=== PATIENT | male | born 1970 | race Caucasian/White ===

== ENCOUNTER 2025-07-03 09:17 | Outpatient (CLI) | payer OTHER, SELFPAY | END 2025-07-03 09:18 | disposition home or self-care (01) | LOC: AMB 07-04 21:29 | PROVIDERS: PCP Family Medicine; Visit Provider Family Medicine | DX: R06.09 Other forms of dyspnea (principal); R11.2 Nausea with vomiting, unspecified | CPT/HCPCS: A0425; A0427 ==

== ENCOUNTER 2025-07-03 09:40 | Inpatient (IN) | payer OTHER, SELFPAY ==
[2025-07-03] VITALS (30 sets, daily range): BP systolic 98–150; BP diastolic 61–103; PULSE 45–69; RESP 8–28; TEMP 36.4–38.1; O2SAT 73–100; BMI 32.0
[2025-07-03] MEDS: MORPHINE 4 MG/ML INJ IVP (10:05)
[2025-07-03] MEDS: ONDANSETRON 2 MG/ML inj 4 MG IVP (10:09)
[2025-07-03 10:14] LABS: Lactate Sepsis w/Reflex* 3.8 mmol/L (0.5-1.9)
[2025-07-03 10:15] LABS: Hematocrit* 45.7 % (37.0-53.0); Hemoglobin* 16.0 gm/dL (13.5-17.5); Immature Granulocytes Abs Auto 0.01 K/uL (0.00-0.30); Immature Granulocytes Pct Auto 0.2 %; Mean Corpuscular HGB Conc 35 gm/dL (32-36); Mean Corpuscular Hemoglobin 30 pg (26-34); Mean Corpuscular Volume 85 fL (80-100); RDW Coefficient of Variation % 14.0 % (11.5-15.5); Red Blood Count* 5.40 m/uL (4.30-5.90); White Blood Count* 5.08 K/uL (4.50-11.00)
[2025-07-03 10:19] LABS: Lymphocytes Absolute Auto 0.70 K/uL (0.90-2.90); Slide Review Reflex No
[2025-07-03 10:22] LABS: Troponin, Point-of-Care* 0.00 ng/ml (0.01-0.04)
--- NOTE | 2025-07-03 10:29 | CRLHL7_ITS ---
For Patients: As a result of the Century Cures Act, medical imaging exams and procedure reports are released immediately into your electronic medical record. You may view this report before your referring provider. If you have questions, please contact your health care provider. INDICATION: Vomiting, severe abdominal pain. TECHNIQUE: Axial images were obtained from the diaphragm to the pubic symphysis. Reformats were obtained in the coronal and sagittal plane. IV Contrast: 110 cc Isovue 370 Oral Contrast: None COMPARISON: None. FINDINGS: Lower chest: Discoid atelectasis left lower lobe. Liver: Nodular contour of the liver consistent with a cirrhotic morphology. No focal intrahepatic lesions. Gallbladder and bile ducts: Numerous layering gallstones without gallbladder wall thickening. Normal diameter common duct. Spleen: Moderate splenomegaly without focal lesion. Pancreas: Unremarkable. No mass or inflammation. Adrenal glands: Unremarkable. No nodules. Kidneys: Symmetric renal enhancement without hydronephrosis. 2 millimeter nonobstructing stone lower pole left kidney. Subcentimeter hypodense lesion right kidney, likely renal cyst. Vasculature: Atherosclerosis without abdominal aortic aneurysm. Markedly dilated splenic vein, portal vein with prominent recanalized periumbilical vein. Numerous collateral vessels along the right abdominal wall extending to the right external iliac vein which is markedly dilated. Separate subcutaneous collaterals along the right abdominal wall emptying into the distal greater saphenous vein. GI tract: Haziness within the central mesentery, likely secondary to portal hypertension with trace ascites. The stomach is unremarkable. No dilated loops of large or small intestine. Subcentimeter lymph nodes within the central mesentery. Appendix unremarkable. Moderate colonic diverticulosis without localizing inflammation. Small fat containing umbilical hernia. Pelvis: Unremarkable. Bones: Unremarkable for age. IMPRESSION: 1. Cirrhotic morphology of the liver with associated splenomegaly and varices consistent with portal hypertension. 2. Extensive cholelithiasis without CT evidence of cholecystitis. 3. Nonobstructing nephrolithiasis. 4. Colonic diverticulosis. Please note that all CT scans at this facility use dose modulation, iterative reconstruction, and/or weight-based dosing when appropriate to reduce radiation dose to as low as reasonably achievable. Dictated by Ming Mejia MD @ 07/03/2025 11:14:22 AM (Electronically Signed)
[2025-07-03 10:32] LABS: Albumin* 4.5 g/dL (3.3-5.0); Chloride* 104 mmol/L (96-114); Potassium* 3.7 mmol/L (3.6-5.1); Sodium* 141 mmol/L (135-149)
[2025-07-03 10:35] LABS: Alanine Aminotransferase* 35 U/L (4-50); Alkaline Phosphatase* 97 U/L (40-150); Anion Gap 16 mEq/L (7-15); Aspartate Amino Transferase* 49 U/L (12-35); Bilirubin Direct* 0.5 mg/dL (0.0-0.5); Bilirubin Total* 2.1 mg/dL (0.1-1.5); Calcium* 9.6 mg/dL (8.4-10.6); Carbon Dioxide* 21 mmol/L (20-32); Glucose* 115 mg/dL (60-115); Total Protein* 8.1 g/dL (6.0-8.3)
[2025-07-03 10:40] LABS: Blood Urea Nitrogen* 8 mg/dL (7-30); Creatinine* 0.7 mg/dL (0.5-1.5); Estimated Glomerular Filt Rate 108 ml/min
[2025-07-03] MEDS: diazePAM 5 MG/ML inj IV (10:42)
[2025-07-03 10:45] LABS: Ethanol* < 0.01 % (0.01-0.03)
--- NOTE | 2025-07-03 10:52 | ED.GENADULT ---
HPI - General Adult General Date Seen: 07/03/25 Chief complaint: Abdominal Pain Stated complaint: Gall stones Time Seen by Provider: 07/03/25 09:48 History of Present Illness HPI narrative: Patient is a 54-year-old here by EMS for evaluation of vomiting and feeling poorly. EMS reports that they noted some bradycardia in the high 40s initially although he is improved without intervention. They were not able to place an IV. They did give him oral Zofran but he vomited shortly after that. They report no significant findings on his 12 lead, unremarkable vital signs otherwise. Patient tells me he went to work this morning and after arriving he started to feel poorly, nausea and general abdominal ?discomfort. He does note a prior history of pancreatitis, reportedly has gallstones. He has a history of alcoholic liver disease and cirrhosis, as well as varices, followed by [facility]. He says that they opted not to do a cholecystectomy because of his other health history. He denies any prior similar symptoms to today, has not had any postprandial symptoms. He quit smoking a number of years ago. He tells me he has not had any alcohol for 13 months, he takes naltrexone. He is not able to further localize his symptoms. He does not seem to have chest pain however. He tells me he has had normal stools, denies black or bloody stools, diarrhea, constipation. Related Data Home Medications ?Medication ?Instructions ?Recorded ?Confirmed cholecalciferol (vitamin D3) .ROUTE 07/03/25 cyanocobalamin (vitamin B-12) PO DAILY 07/03/25 diltiazem HCl 120 mg 120 mg PO DAILY 07/03/25 07/03/25 capsule,extended release 24 hr, controlled (DILT-XR) epinephrine 0.3 mg/0.3 mL 0.3 mg IM DIRECTED PRN 07/03/25 07/03/25 injection, auto-injector ferrous sulfate 325 mg (65 mg 325 mg PO Q48H 07/03/25 07/03/25 iron) tablet (iron) folic acid 1 mg tablet 1 mg PO DAILY 07/03/25 07/03/25 loperamide 2 mg capsule 2 mg PO QAM 07/03/25 07/03/25 metoprolol tartrate 25 mg tablet 12.5 mg PO BID 07/03/25 07/03/25 multivitamin (Daily Multi-Vitamin 1 tab PO DAILY 07/03/25 07/03/25 tablet) naltrexone 50 mg tablet 50 mg PO DAILY 07/03/25 07/03/25 pyridoxine (vitamin B6) PO DAILY 07/03/25 tadalafil 5 mg tablet 5 mg PO DAILY 07/03/25 07/03/25 thiamine HCl (vitamin B1) 100 mg 100 mg PO DAILY 07/03/25 07/03/25 tablet Review of Systems Status of ROS: Reports: 10 or more systems reviewed and unremarkable except as noted in History and below [facility] Social History Smoking Status: Former smoker How often do you have a drink containing alcohol: never AUDIT-C Alcohol total score: 0 Non-prescribed substance use: denies use Exam Narrative: Exam Narrative: Vital signs reviewed In general, an alert middle-aged male, kind of writhing on the gurney, looks uncomfortable. Head: Normocephalic, atraumatic. Eyes: Sclera clear. Pupils are small but reactive. ENT: Mucous membranes moist. Neck: Supple without adenopathy. Heart: Regular rate and rhythm without murmur. Lungs: Clear. No increased work of breathing, crackles or wheezes. Abdomen: Protuberant, soft. Does not seem to have any significant tenderness aside from maybe a little bit of right upper quadrant tenderness, negative Yost's. Extremities: Well perfused, pulses intact. No significant edema. Neurologic: Alert, conversant. Speech fluent, face symmetric. Moves all extremities equally. Skin: Warm, dry well perfused. Affect: Irritable. Const: Vital Signs, click to edit/add: Vital Signs - 24 hr 07/03/25 10:16 07/03/25 10:38 07/03/25 10:45 Temperature 98.7 F Pulse Rate 48 L Pulse Rate [Right Pulse Oximeter] 58 L Respiratory Rate 20 Blood Pressure Pulse Oximetry 98 97 95 Oxygen Delivery Me thod Room Air Oxygen Flow Rate 07/03/25 10:45 07/03/25 10:47 07/03/25 10:50 Temperature Pulse Rate 58 L 49 L Pulse Rate [Right Pulse Oximeter] Respiratory Rate 24 Blood Pressure 130/72 Pulse Oximetry 97 93 73 L Oxygen Delivery Me thod Nasal Cannula Oxygen Flow Rate 4 07/03/25 10:50 07/03/25 10:52 07/03/25 11:02 Temperature Pulse Rate 55 L Pulse Rate [Right Pulse Oximeter] Respiratory Rate 8 L Blood Pressure Pulse Oximetry 75 L 95 95 Oxygen Delivery Me thod Room Air Nasal Cannula Nasal Cannula Oxygen Flow Rate 4 3 07/03/25 11:09 07/03/25 11:10 07/03/25 11:15 Temperature Pulse Rate 54 L 57 L 51 L Pulse Rate [Right Pulse Oximeter] Respiratory Rate 12 Blood Pressure 135/74 Pulse Oximetry 97 99 99 Oxygen Delivery Me thod Nasal Cannula Oxygen Flow Rate 3 07/03/25 11:30 07/03/25 11:30 07/03/25 11:58 Temperature Pulse Rate 67 69 Pulse Rate [Right Pulse Oximeter] Respiratory Rate Blood Pressure Pulse Oximetry 98 99 98 Oxygen Delivery Me thod Room Air Oxygen Flow Rate 07/03/25 12:00 07/03/25 12:15 07/03/25 12:26 Temperature Pulse Rate 63 64 49 L Pulse Rate [Right Pulse Oximeter] Respiratory Rate 28 H Blood Pressure 138/64 Pulse Oximetry 97 98 100 Oxygen Delivery Me thod Room Air Nasal Cannula Oxygen Flow Rate 2 07/03/25 12:27 07/03/25 12:30 07/03/25 12:45 Temperature Pulse Rate 45 L 47 L 50 L Pulse Rate [Right Pulse Oximeter] Respiratory Rate Blood Pressure Pulse Oximetry 99 98 100 Oxygen Delivery Me thod Oxygen Flow Rate 07/03/25 13:40 07/03/25 13:45 07/03/25 14:00 Temperature Pulse Rate 45 L 45 L 54 L Pulse Rate [Right Pulse Oximeter] Respiratory Rate Blood Pressure Pulse Oximetry 99 97 98 Oxygen Delivery Me thod Nasal Cannula Oxygen Flow Rate 2 07/03/25 14:15 07/03/25 14:24 07/03/25 14:30 Temperature Pulse Rate 53 L 62 65 Pulse Rate [Right Pulse Oximeter] Respiratory Rate Blood Pressure 145/67 H Pulse Oximetry 98 98 99 Oxygen Delivery Me thod Oxygen Flow Rate 07/03/25 15:05 Temperature Pulse Rate 60 Pulse Rate [Right Pulse Oximeter] Respiratory Rate Blood Pressure Pulse Oximetry 99 Oxygen Delivery Me thod Oxygen Flow Rate Course Course ED Course: Following initial evaluation, patient was placed on a monitor. An EKG was obtained. Initial EKG shows a sinus bradycardia, ventricular rate of 57. Previous EKG unavailable. He has 0.5 mm to a mm of ST depression in leads 4 5 and 6. He has a nonspecific intraventricular conduction delay. I do not see any ST elevation. T-waves are unremarkable. Initial troponin was 0. He had an IV placed, I gave him 4 mg of morphine, 4 mg of Zofran as well as 15 mg of Toradol. I ordered 325 mg of aspirin. He became increasingly difficult to care for, he was yelling at staff, swearing, and refusing to cooperate with staff request. I did have a conversation with him about his behavior any seems to have calmed down a little bit. I gave him 0.5 mg of Dilaudid for ongoing ?discomfort, and also 0.5 mg of Valium. I looked with the ultrasound at his right upper quadrant as well as his heart, exam was somewhat difficult as he would not lay still. Not able to assess the gallbladder beyond presence of gallstones. Generally good cardiac activity, no obvious pericardial effusion. Diagnostic considerations quite broad including acute coronary syndrome or angina, dissection, biliary colic, cholecystitis, pancreatitis, perforated viscus, bowel obstruction, among others. Negative troponin and unremarkable EKG is relatively reassuring, but will recheck a troponin at 2 hours. His lactate was elevated at 3.8. I reviewed previous records, he does have a history of elevated transaminases, though I do not have records of prior labs through [facility]. LFTs today are notable for a bilirubin of 2.1, AST is mildly elevated at 49 ALT normal at 35 and alk-phos normal at 97. Albumin is normal. CRP is less than 0.5. Blood alcohol is negative. Other electrolytes are normal. He has a slight increased gap at 16. BUN creatinine are normal and blood sugars normal. CBC shows a normal white blood cell count, hemoglobin of 16. I reviewed his CT scan. I did not see evidence of cholecystitis though he does have numerous gallstones. No evidence of bowel obstruction or diverticulitis. He had a little bit of haziness or stranding/fluid your the upper small bowel, I reviewed the radiology report, they noted mesenteric haziness likely related to small ascites. Cirrhosis, portal hypertension, no other acute findings. Patient continued to have significant pain/discomfort. He received multiple doses of narcotics including Dilaudid as well as morphine, he had Protonix, he had Zofran, as well as Valium. Ultimately I tried ketamine, he does take naltrexone which could be affecting the effectiveness of the narcotics. He did not like ketamine at all, it made him feel too loopy. Also he did not report any pain relief and requested more Dilaudid. Outside records reviewed as well, he does not have prior visits at ERs for abdominal pain. I did discuss with GI through [facility], they felt this was relatively unlikely to be related to biliary colic, did not have any other specific recommendations outside of doing a right upper quadrant ultrasound which was done. This showed gallstones but no evidence of cholecystitis. Given ongoing pain, need for IV pain medications, and concern for evolving intra-abdominal process, I think he requires admission to the hospital. Diagnostic considerations at this point would include biliary colic or developing cholecystitis, gastric or duodenal ulcer, dysentery ischemia seems relatively unlikely given his absence of significant risk factors. Discussed with hospitalist and admitted to their service. Vital Signs Vital signs: Initial Vital Signs Temperature 98.7 F 07/03/25 10:16 Temperature Source Temporal Artery Scan 07/03/25 10:16 Pulse Rate 58 L 07/03/25 10:16 Pulse Rhythm Regular 07/03/25 10:16 Pulse Strength 3+ Normal 07/03/25 10:16 Respiratory Rate 20 07/03/25 10:16 Pulse Oximetry 98 07/03/25 10:16 Oxygen Delivery Method Room Air 07/03/25 10:16 Vital Signs Temperature 98.7 F 07/03/25 10:16 Pulse Rate 58 L 07/03/25 10:16 Respiratory Rate 20 07/03/25 10:16 Pulse Oximetry 98 07/03/25 10:16 Oxygen Delivery Method Room Air 07/03/25 10:16 Temperature 98.7 F 07/03/25 10:16 Pulse Rate 60 07/03/25 15:05 Respiratory Rate 28 H 07/03/25 12:26 Blood Pressure 145/67 H 07/03/25 14:24 Pulse Oximetry 99 07/03/25 15:05 Oxygen Delivery Method Nasal Cannula 07/03/25 13:45 Oxygen Flow Rate 2 07/03/25 13:45 Medications Administered Medications: Discontinued Medications Generic Name Dose Route Start Last Admin Trade Name Freq PRN Reason Stop Dose Admin Aspirin 324 mg 07/03/25 09:48 07/03/25 15:15 Aspirin 81 Mg Tab.Chew PO 07/03/25 09:49 324 mg ONCE ONE Administration Diazepam 5 mg 07/03/25 10:37 07/03/25 10:42 Diazepam 5 Mg/Ml Inj IV 07/03/25 10:38 5 mg ONCE ONE Administration Hydromorphone HCl 0.5 mg 07/03/25 10:28 07/03/25 10:33 Hydromorphone 0.5 Mg/0.5 Ml Inj IVP 07/03/25 10:29 0.5 mg ONCE ONE Administration Hydromorphone HCl 0.5 mg 07/03/25 12:11 07/03/25 12:16 Hydromorphone 0.5 Mg/0.5 Ml Inj IVP 07/03/25 12:12 0.5 mg ONCE ONE Administration Hydromorphone HCl 0.5 mg 07/03/25 15:14 07/03/25 15:21 Hydromorphone 0.5 Mg/0.5 Ml Inj IVP 07/03/25 15:15 0.5 mg ONCE ONE Administration Ketamine HCl 25 mg 07/03/25 14:00 07/03/25 14:19 Ketamine 50 Mg/0.5 Ml IVP 07/03/25 14:01 25 mg ONCE ONE Administration Ketorolac Tromethamine 15 mg 07/03/25 09:48 07/03/25 10:05 Ketorolac 15 Mg/Ml Inj IVP 07/03/25 09:49 15 mg ONCE ONE Administration Morphine Sulfate 4 mg 07/03/25 09:48 07/03/25 10:05 Morphine 4 Mg/Ml Inj IVP 07/03/25 09:49 4 mg ONCE ONE Administration Ondansetron HCl 4 mg 07/03/25 09:48 07/03/25 10:09 Ondansetron 2 Mg/Ml Inj IVP 07/03/25 09:49 4 mg ONCE ONE Administration Pantoprazole Sodium 40 mg 07/03/25 12:36 07/03/25 12:41 Pantoprazole Sodium 40 Mg Inj IVP 07/03/25 12:37 40 mg ONCE ONE Administration Medical Decision Making Lab Data Lab results reviewed: Yes I reviewed the patient's lab results Labs: Lab Results 07/03/25 07/03/25 07/03/25 Range/Units 09:49 10:04 10:12 WBC 5.08 (4.50-11.00) K/uL RBC 5.40 (4.30-5.90) m/uL Hgb 16.0 (13.5-17.5) gm/dL Hct 45.7 (37.0-53.0) % MCV 85 (80-100) fL MCH 30 (26-34) pg MCHC 35 (32-36) gm/dL RDW Coeff of Jayda 14.0 (11.5-15.5) % Plt Count 134 L (140-440) K/uL Neut % (Auto) 81.5 H (42.0-72.0) % Lymph % (Auto) 12.8 L (20-44) % [place] % (Auto) 5.5 (0.0-11.0) % Eos % (Auto) 0.0 (0.0-7.0) % Baso % (Auto) 0.0 (0.0-3.0) % Neut # (Auto) 4.10 (1.7-7.0) K/uL Lymph # (Auto) 0.70 L (0.90-2.90) K/uL [place] # (Auto) 0.30 (0.00-0.90) K/UL Eos # (Auto) 0.00 (0.00-0.50) K/uL Baso # (Auto) 0.00 (0.00-0.30) K/uL Abs Immat Gran (auto) 0.01 (0.00-0.30) K/uL Imm/Tot Granulo (auto) 0.2 % Sodium 141 (135-149) mmol/L Potassium 3.7 (3.6-5.1) mmol/L Chloride 104 (96-114) mmol/L Carbon Dioxide 21 (20-32) mmol/L Anion Gap 16 H (7-15) mEq/L BUN 8 (7-30) mg/dL Creatinine 0.7 (0.5-1.5) mg/dL Estimated GFR 108 ml/min Glucose 115 (60-115) mg/dL Lactate 3.8 H (0.5-1.9) mmol/L Calcium 9.6 (8.4-10.6) mg/dL Magnesium 1.6 (1.5-2.6) mg/dL Total Bilirubin 2.1 H (0.1-1.5) mg/dL Direct Bilirubin 0.5 (0.0-0.5) mg/dL AST 49 H (12-35) U/L ALT 35 (4-50) U/L Alkaline Phosphatase 97 (40-150) U/L C-Reactive Protein < 0.5 L (0.5-1.0) mg/dL Total Protein 8.1 (6.0-8.3) g/dL Albumin 4.5 (3.3-5.0) g/dL Lipase 173 (23-300) U/L Urine Color (Yellow) Urine Appearance (Clear) Urine pH (5.0-8.5) Ur Specific [place] (1.000-1.030) Urine Protein (Negative) Urine Glucose (UA) (Negative) Urine Ketones (Negative) Urine Blood (Negative) Urine Nitrite (Negative) Urine Bilirubin (Negative) Urine Urobilinogen (0.2-1.0) Ur Leukocyte Esterase (Negative) Ethyl Alcohol < 0.01 (0.01-0.03) % Lab Acknowledgement POC Troponin I 0.00 L (0.01-0.04) ng/ml 07/03/25 07/03/25 07/03/25 Range/Units 11:31 11:40 12:58 WBC (4.50-11.00) K/uL RBC (4.30-5.90) m/uL Hgb (13.5-17.5) gm/dL Hct (37.0-53.0) % MCV (80-100) fL MCH (26-34) pg MCHC (32-36) gm/dL RDW Coeff of Jayda (11.5-15.5) % Plt Count (140-440) K/uL Neut % (Auto) (42.0-72.0) % Lymph % (Auto) (20-44) % [place] % (Auto) (0.0-11.0) % Eos % (Auto) (0.0-7.0) % Baso % (Auto) (0.0-3.0) % Neut # (Auto) (1.7-7.0) K/uL Lymph # (Auto) (0.90-2.90) K/uL [place] # (Auto) (0.00-0.90) K/UL Eos # (Auto) (0.00-0.50) K/uL Baso # (Auto) (0.00-0.30) K/uL Abs Immat Gran (auto) (0.00-0.30) K/uL Imm/Tot Granulo (auto) % Sodium (135-149) mmol/L Potassium (3.6-5.1) mmol/L Chloride (96-114) mmol/L Carbon Dioxide (20-32) mmol/L Anion Gap (7-15) mEq/L BUN (7-30) mg/dL Creatinine (0.5-1.5) mg/dL Estimated GFR ml/min Glucose (60-115) mg/dL Lactate 2.3 H (0.5-1.9) mmol/L Calcium (8.4-10.6) mg/dL Magnesium (1.5-2.6) mg/dL Total Bilirubin (0.1-1.5) mg/dL Direct Bilirubin (0.0-0.5) mg/dL AST (12-35) U/L ALT (4-50) U/L Alkaline Phosphatase (40-150) U/L C-Reactive Protein (0.5-1.0) mg/dL Total Protein (6.0-8.3) g/dL Albumin (3.3-5.0) g/dL Lipase (23-300) U/L Urine Color (Yellow) Urine Appearance (Clear) Urine pH (5.0-8.5) Ur Specific [place] (1.000-1.030) Urine Protein (Negative) Urine Glucose (UA) (Negative) Urine Ketones (Negative) Urine Blood (Negative) Urine Nitrite (Negative) Urine Bilirubin (Negative) Urine Urobilinogen (0.2-1.0) Ur Leukocyte Esterase (Negative) Ethyl Alcohol (0.01-0.03) % Lab Acknowledgement Test Added POC Troponin I 0.02 (0.01-0.04) ng/ml 07/03/25 Range/Units 15:00 WBC (4.50-11.00) K/uL RBC (4.30-5.90) m/uL Hgb (13.5-17.5) gm/dL Hct (37.0-53.0) % MCV (80-100) fL MCH (26-34) pg MCHC (32-36) gm/dL RDW Coeff of Jayda (11.5-15.5) % Plt Count (140-440) K/uL Neut % (Auto) (42.0-72.0) % Lymph % (Auto) (20-44) % [place] % (Auto) (0.0-11.0) % Eos % (Auto) (0.0-7.0) % Baso % (Auto) (0.0-3.0) % Neut # (Auto) (1.7-7.0) K/uL Lymph # (Auto) (0.90-2.90) K/uL [place] # (Auto) (0.00-0.90) K/UL Eos # (Auto) (0.00-0.50) K/uL Baso # (Auto) (0.00-0.30) K/uL Abs Immat Gran (auto) (0.00-0.30) K/uL Imm/Tot Granulo (auto) % Sodium (135-149) mmol/L Potassium (3.6-5.1) mmol/L Chloride (96-114) mmol/L Carbon Dioxide (20-32) mmol/L Anion Gap (7-15) mEq/L BUN (7-30) mg/dL Creatinine (0.5-1.5) mg/dL Estimated GFR ml/min Glucose (60-115) mg/dL Lactate (0.5-1.9) mmol/L Calcium (8.4-10.6) mg/dL Magnesium (1.5-2.6) mg/dL Total Bilirubin (0.1-1.5) mg/dL Direct Bilirubin (0.0-0.5) mg/dL AST (12-35) U/L ALT (4-50) U/L Alkaline Phosphatase (40-150) U/L C-Reactive Protein (0.5-1.0) mg/dL Total Protein (6.0-8.3) g/dL Albumin (3.3-5.0) g/dL Lipase (23-300) U/L Urine Color Yellow (Yellow) Urine Appearance Clear (Clear) Urine pH 8.5 (5.0-8.5) Ur Specific [place] 1.015 (1.000-1.030) Urine Protein Negative (Negative) Urine Glucose (UA) Negative (Negative) Urine Ketones 2+ A (Negative) Urine Blood Trace-intact A (Negative) Urine Nitrite Negative (Negative) Urine Bilirubin Negative (Negative) Urine Urobilinogen 0.2 (0.2-1.0) Ur Leukocyte Esterase Negative (Negative) Ethyl Alcohol (0.01-0.03) % Lab Acknowledgement POC Troponin I (0.01-0.04) ng/ml Imaging Data CT scan - abdomen: Attestation: I have reviewed the pertinent imaging results. Radiologist's impression: Patient: Arnaldo Dlilon MR#: [id number] : 1970 Acct:[id number] Loc: ED Service Date: 07/03/[address]: Ordering Physician: Felecia Cook M.D. Date of Service: 07/03/25 Procedure(s): CT abdomen pelvis w con Accession Number(s): [id number] cc: Felecia Cook M.D.~ For Patients: As a result of the Cures Act, medical imaging exams and procedure reports are released immediately into your electronic medical record. You may view this report before your referring provider. If you have questions, please contact your health care provider. INDICATION: Vomiting, severe abdominal pain. TECHNIQUE: Axial images were obtained from the diaphragm to the pubic symphysis. Reformats were obtained in the coronal and sagittal plane. IV Contrast: 110 cc Isovue 370 Oral Contrast: None COMPARISON: None. FINDINGS: Lower chest: Discoid atelectasis left lower lobe. Liver: Nodular contour of the liver consistent with a cirrhotic morphology. No focal intrahepatic lesions. Gallbladder and bile ducts: Numerous layering gallstones without gallbladder wall thickening. Normal diameter common duct. Spleen: Moderate splenomegaly without focal lesion. Pancreas: Unremarkable. No mass or inflammation. Adrenal glands: Unremarkable. No nodules. Kidneys: Symmetric renal enhancement without hydronephrosis. 2 millimeter nonobstructing stone lower pole left kidney. Subcentimeter hypodense lesion right kidney, likely renal cyst. Vasculature: Atherosclerosis without abdominal aortic aneurysm. Markedly dilated splenic vein, portal vein with prominent recanalized periumbilical vein. Numerous collateral vessels along the right abdominal wall extending to the right external iliac vein which is markedly dilated. Separate subcutaneous collaterals along the right abdominal wall emptying into the distal greater saphenous vein. GI tract: Haziness within the central mesentery, likely secondary to portal hypertension with trace ascites. The stomach is unremarkable. No dilated loops of large or small intestine. Subcentimeter lymph nodes within the central mesentery. Appendix unremarkable. Moderate colonic diverticulosis without localizing inflammation. Small fat containing umbilical hernia. Pelvis: Unremarkable. Bones: Unremarkable for age. IMPRESSION: 1. Cirrhotic morphology of the liver with associated splenomegaly and varices consistent with portal hypertension. 2. Extensive cholelithiasis without CT evidence of cholecystitis. 3. Nonobstructing nephrolithiasis. 4. Colonic diverticulosis. Please note that all CT scans at this facility use dose modulation, iterative reconstruction, and/or weight-based dosing when appropriate to reduce radiation dose to as low as reasonably achievable. Dictated by Ming Mejia MD @ 07/03/2025 11:14:22 AM Discharge Plan Discharge Clinical Impression: Abdominal pain Patient Disposition: Admitted As Observation
[2025-07-03 11:49] LABS: Lactate Sepsis 2 Hour 2.3 mmol/L (0.5-1.9)
[2025-07-03 11:58] LABS: Troponin, Point-of-Care* 0.02 ng/ml (0.01-0.04)
--- NOTE | 2025-07-03 12:29 | CRLHL7_ITS ---
For Patients: As a result of the Century Cures Act, medical imaging exams and procedure reports are released immediately into your electronic medical record. You may view this report before your referring provider. If you have questions, please contact your health care provider. INDICATION: Abdominal pain, nausea, gallstone TECHNIQUE: Ultrasound abdomen limited. Sonographic images of the right upper quadrant were obtained using moreno-scale and color Doppler images. COMPARISON: Same day CT abdomen and pelvis with contrast. FINDINGS: Liver: Heterogeneous liver parenchyma with coarse echotexture and nodular contour. Gallbladder: Multiple nonmobile gallstones are present. Gallbladder wall thickness is at the upper limits of normal measuring 3 millimeters. No pericholecystic fluid. Negative sonographic Yost`s sign. Common bile duct: 2 mm. Pancreas: Not well visualized. Right kidney: Normal in size. Normal echotexture and cortex. No suspicious masses, stones, or hydronephrosis. Proximal abdominal aorta: Normal in caliber. IVC: Patent. Main portal vein: Patent. Ascites: None visualized. IMPRESSION: 1. Cholelithiasis without sonographic findings to suggest acute cholecystitis. 2. Cirrhosis. Dictated by Bushra Jewell MD @ 07/03/2025 1:14:44 PM (Electronically Signed)
[2025-07-03] MEDS: PANTOPRAZOLE SODIUM 40 MG INJ IVP (12:41)
[2025-07-03] MEDS: ASPIRIN 81 MG TAB.CHEW 324 MG PO (15:15)
[2025-07-03 15:31] LABS: Appearance Urine Clear (Clear)
--- NOTE | 2025-07-03 16:24 | PM.IMHP1 ---
Assessment and Plan Assessment and plan (1) Mesenteric panniculitis: Problem comment: pain is out of proportion to findings thus CTA was completed. the results showed: Hepatic cirrhosis with sequelae of portal hypertension. The pancreas is borderline edematous. There are peripancreatic in superior mesenteric inflammatory changes with interspersed subcentimeter lymph nodes throughout. These findings are suggestive of mesenteric panniculitis, however correlation with amylase/lipase is recommended to exclude a coexisting acute pancreatitis. -will update gen surgery and will likely not need EGD in the am but Dr. More is available if needed. -supportive care at this point. Status: Acute (2) Elevated lactic acid level: Problem comment: -improved from ER presentation Status: Acute (3) Chronic alcoholic liver disease: Problem comment: -followed by [facility] -primary care in [place] -recent weight loss noted 250->223 this year; no appetite -MELD Score -sober date 05/24/24 Status: Acute (4) Esophageal varices: Problem comment: -metoprolol 12.5 BID -previous banding Status: Acute (5) Alcohol use disorder in remission: Problem comment: -daily naltrexone -sober date is 05/24/24 Status: Acute (6) Hypertension: Problem comment: -daily Dilt-XR Status: Acute Hospitalist- H&P: HPI History of Present Illness Date Seen: 07/03/25 Chief complaint: Gall stones Narrative: ADMISSION HISTORY AND PHYSICAL - HOSPITALIST Chief Complaint: Acute onset abdominal pain; vomiting. HPI: 54 y/o WM with hx of alcoholic liver disease, obesity, recent cessation of chronic prednisone therapy (??) presents with the acute onset of abdominal pain. He ate normal yesterday; slept normal last night. 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 He was alone in a garage and felt the sudden onset of bowel cramping and had a normal large bowel movement. No melana, no javier blood, no diarrhea. He felt better only for a little bit then the abdominal pain came back and he felt nauseated. He went to a local gas station and got milk and a donut. he didn't get much of that in before he vomited and started dry-heaving. He went back to the garage and called his ; he didn't feel he could drive home. He call 911 and was brought to [facility]. In the ED, pain management was difficult. he rec'd morphine, ketorolac, zofran followed by dilaudid, valium, PPI. Dr. Cook then tried ketamine. That was not tolerated at all by the patient. We followed with more hydromorphone and zofran and toradol on the floor. ER COURSE: Pain management was the most important issue. He received 4 mg of morphine, 15 mg of Toradol, 3 doses of hydromorphone at 0.5 mg, 5 mg of Valium, 40 mg of a PPI and aspirin. The ER staff had a surgical curbside consult They discussed the case with GI in [place] He had both an ultrasound and a CT Ultimately the hospitalist team was asked to admit for further workup and management CODE STATUS: FULL CODE PCP: Edi Haddad M.D. [phone] ([facility]) EMERGENCY CONTACT PLAN: Usha mo is on the board I've updated the PFSH, medications and allergies in the Expanse tabs. INVESTIGATIONS: LABS/MICRO/ECG/IMAGING T-max 99.4? Blood pressure 150/103 Pulse 50s and 60s as low as 45 Respiratory rate initially as high as 28, now 20 Pulse ox 98% air 101.1 kg CBC reflects a normal white blood cell count, normal hemoglobin and platelet count that is 134 K Chemistries reflect normal electrolytes. A low normal bicarb. Creatinine of 0.7. Glucose 115. An initial lactate was 3.8 is down to 2.3. Normal magnesium total bilirubin is 2.1, with a direct of 0.5. AST is only marginally elevated at 49 with a normal ALT and normal alk-phos. CRP is undetectable. Total protein, albumin and lipase, lipase are all normal. His UA did show 2+ ketones but no other signs of infection. Alcohol negative Right upper quadrant ultrasound -importantly no ascites noted. Normal common bile duct. 1. Cholelithiasis without sonographic findings to suggest acute cholecystitis. 2. Cirrhosis. CT abdomen pelvis 1. Cirrhotic morphology of the liver with associated splenomegaly and varices consistent with portal hypertension. 2. Extensive cholelithiasis without CT evidence of cholecystitis. 3. Nonobstructing nephrolithiasis. 4. Colonic diverticulosis. No micro has been ordered EKG - sinus love. REVIEW OF SYSTEMS: 12-point ROS completed with patient and negative unless otherwise stated in HPI or below. PHYSICAL EXAM: CONSTITUTIONAL: writhing in pain. emotionally controlled. flushed. GENERAL: Well nourished. No respiratory distress. Speaks in full sentences. VITAL SIGNS: see record. HEENT: Sclerae are anicteric. No petechiae. CARDIAC: rhythm is regular. There is no S3 or rub. No harsh murmurs. Extremities show trace edema with symmetrical pulses. ABDOMEN: obese; tender generally in the right upper and epigastric regions; doesn't localize. no peritoneal signs. NEURO: Speech is fluent. A brief neurologic exam is negative. SKIN: No rashes, petechiae, concerning changes PSYCHIATRIC: Euthymic. ADMIT TO MEDSURG: FLOOR CARE DVT: SCDS GI: PPI Time spent: Today I spent 75 minutes seeing the patient, discussing the patient with ER staff, reviewing Expanse and EPIC notes/diagnostics, discussing the care plan with our care time that includes social work, PT/OT, pharmacy, RT, long-term and documenting my impressions and plan in the medical record. MEDICAL NECESSITY FOR HOSPITALIZATION Anticipated midnights in the hospital: 2 Admitting diagnosis: pain crisis, abdominal pain Risk of morbidity and mortality: high Acuity is characterized as high and reflected in: unexplained cause, liver disease This patient will require hospital services as outlined in the assessment and plan in order to stabilize and be safely discharged to a lower level of care. Because of the risk and acuity as described above, this patient cannot be managed at a lower level of care. LENGTH OF STAY: 2 IP ? Anticipated LOS>2 midnights due to acuity of clinical presentation requiring inpatient level of care [facility] Medical History (Updated 07/03/25 @ 21:42 by Carie Chi MD) Erectile dysfunction ?N52.9 - Male erectile dysfunction, unspecified (ICD-10) Hypertension ?I10 - Essential (primary) hypertension (ICD-10) Alcohol use disorder in remission ?F10.91 - Alcohol use, unspecified, in remission (ICD-10) History of atrial fibrillation ?Z86.79 - Personal history of other diseases of the circulatory system (ICD-10) H/O acute pancreatitis ?Z87.19 - Personal history of other diseases of the digestive system (ICD-10) Social History What is your current living situation?: I presently have a place to live Problems where you live: no known problems In the past 12 months, utilities in danger of being shut off: no In past 12 months, lack of transportation kept you from medical appts, meetings, work, or getting things needed for daily living: no In the past 12 mos, have been you worried that your food would run out before you had money to buy more?: never true In the past 12 mos, the food you bought just didn't last and you didn't have money to buy more?: never true Smoking Status: Former smoker How often do you have a drink containing alcohol: never AUDIT-C Alcohol total score: 0 Non-prescribed substance use: denies use How often does anyone, including family, friends and others, physically hurt you: never How often does anyone, including family, friends and others, insult or talk down to you: never How often does anyone, including family, friends and others, threaten you with harm: never How often does anyone, including family, friends and others, scream or curse at you: never Meds Home Medications and Allergies Home Medications ?Medication ?Instructions ?Recorded ?Confirmed ?Type ascorbic acid (vitamin C) 500 mg 500 mg PO DAILY 07/03/25 07/03/25 History tablet (C-500) cholecalciferol (vitamin D3) 5,000 unit PO DAILY 07/03/25 07/03/25 History cyanocobalamin (vitamin B-12) PO DAILY 07/03/25 History diltiazem HCl 120 mg 120 mg PO DAILY 07/03/25 07/03/25 History capsule,extended release 24 hr, controlled (DILT-XR) epinephrine 0.3 mg/0.3 mL 0.3 mg IM DIRECTED PRN 07/03/25 07/03/25 History injection, auto-injector ferrous sulfate 325 mg (65 mg 325 mg PO Q48H 07/03/25 07/03/25 History iron) tablet (iron) folic acid 1 mg tablet 1 mg PO DAILY 07/03/25 07/03/25 History loperamide 2 mg capsule 2 mg PO QAM 07/03/25 07/03/25 History magnesium oxide 400 mg PO DAILY 07/03/25 07/03/25 History metoprolol tartrate 25 mg tablet 12.5 mg PO BID 07/03/25 07/03/25 History multivitamin (Daily Multi-Vitamin 1 tab PO DAILY 07/03/25 07/03/25 History tablet) naltrexone 50 mg tablet 50 mg PO DAILY 07/03/25 07/03/25 History potassium gluconate 595 mg (99 mg) 595 mg PO DAILY 07/03/25 07/03/25 History tablet pyridoxine (vitamin B6) PO DAILY 07/03/25 History tadalafil 5 mg tablet 5 mg PO DAILY 07/03/25 07/03/25 History thiamine HCl (vitamin B1) 100 mg 100 mg PO DAILY 07/03/25 07/03/25 History tablet Allergies Allergy/AdvReac Type Severity Reaction Status Date / Time codeine Allergy Severe Unverified 07/03/25 16:09 meperidine Allergy Severe Verified 07/03/25 16:09 Penicillins Allergy Severe Verified 07/03/25 16:09 influenza virus vaccine, AdvReac Intermediate Verified 07/03/25 16:09 specific lecithin,egg AdvReac Intermediate Verified 07/03/25 16:09 Pertussis Vaccines AdvReac Intermediate Verified 07/03/25 16:09 Exam Const: Vital Signs, click to edit/add: Vital Signs - 24 hr 07/03/25 10:16 07/03/25 10:38 07/03/25 10:45 Temperature 98.7 F Pulse Rate 48 L Pulse Rate [Right Pulse Oximeter] 58 L Respiratory Rate 20 Blood Pressure Blood Pressure [Ri ght Arm] Pulse Oximetry 98 97 95 Oxygen Delivery Me thod Room Air Oxygen Flow Rate 07/03/25 10:45 07/03/25 10:47 07/03/25 10:50 Temperature Pulse Rate 58 L 49 L Pulse Rate [Right Pulse Oximeter] Respiratory Rate 24 Blood Pressure 130/72 Blood Pressure [Ri ght Arm] Pulse Oximetry 97 93 73 L Oxygen Delivery Me thod Nasal Cannula Oxygen Flow Rate 4 07/03/25 10:50 07/03/25 10:52 07/03/25 11:02 Temperature Pulse Rate 55 L Pulse Rate [Right Pulse Oximeter] Respiratory Rate 8 L Blood Pressure Blood Pressure [Ri ght Arm] Pulse Oximetry 75 L 95 95 Oxygen Delivery Me thod Room Air Nasal Cannula Nasal Cannula Oxygen Flow Rate 4 3 07/03/25 11:09 07/03/25 11:10 07/03/25 11:15 Temperature Pulse Rate 54 L 57 L 51 L Pulse Rate [Right Pulse Oximeter] Respiratory Rate 12 Blood Pressure 135/74 Blood Pressure [Ri ght Arm] Pulse Oximetry 97 99 99 Oxygen Delivery Me thod Nasal Cannula Oxygen Flow Rate 3 07/03/25 11:30 07/03/25 11:30 07/03/25 11:58 Temperature Pulse Rate 67 69 Pulse Rate [Right Pulse Oximeter] Respiratory Rate Blood Pressure Blood Pressure [Ri ght Arm] Pulse Oximetry 98 99 98 Oxygen Delivery Me thod Room Air Oxygen Flow Rate 07/03/25 12:00 07/03/25 12:15 07/03/25 12:26 Temperature Pulse Rate 63 64 49 L Pulse Rate [Right Pulse Oximeter] Respiratory Rate 28 H Blood Pressure 138/64 Blood Pressure [Ri ght Arm] Pulse Oximetry 97 98 100 Oxygen Delivery Me thod Room Air Nasal Cannula Oxygen Flow Rate 2 07/03/25 12:27 07/03/25 12:30 07/03/25 12:45 Temperature Pulse Rate 45 L 47 L 50 L Pulse Rate [Right Pulse Oximeter] Respiratory Rate Blood Pressure Blood Pressure [Ri ght Arm] Pulse Oximetry 99 98 100 Oxygen Delivery Me thod Oxygen Flow Rate 07/03/25 13:40 07/03/25 13:45 07/03/25 14:00 Temperature Pulse Rate 45 L 45 L 54 L Pulse Rate [Right Pulse Oximeter] Respiratory Rate Blood Pressure Blood Pressure [Ri ght Arm] Pulse Oximetry 99 97 98 Oxygen Delivery Me thod Nasal Cannula Oxygen Flow Rate 2 07/03/25 14:15 07/03/25 14:24 07/03/25 14:30 Temperature Pulse Rate 53 L 62 65 Pulse Rate [Right Pulse Oximeter] Respiratory Rate Blood Pressure 145/67 H Blood Pressure [Ri ght Arm] Pulse Oximetry 98 98 99 Oxygen Delivery Me thod Oxygen Flow Rate 07/03/25 15:05 07/03/25 16:10 Temperature 99.4 F Pulse Rate 60 Pulse Rate [Right Pulse Oximeter] 58 L Respiratory Rate 20 Blood Pressure Blood Pressure [Ri ght Arm] 150/103 H Pulse Oximetry 99 98 Oxygen Delivery Me thod Room Air Oxygen Flow Rate Hospitalist - H&P: Result Labs Labs: Short CBC 07/03/25 Range/Units 10:04 WBC 5.08 (4.50-11.00) K/uL Hgb 16.0 (13.5-17.5) gm/dL Hct 45.7 (37.0-53.0) % Plt Count 134 L (140-440) K/uL BMP 07/03/25 10:04 Sodium 141 Potassium 3.7 Chloride 104 Carbon Dioxide 21 BUN 8 Creatinine 0.7 Glucose 115 Calcium 9.6 Liver Function 07/03/25 Range/Units 10:04 Total Bilirubin 2.1 H (0.1-1.5) mg/dL Direct Bilirubin 0.5 (0.0-0.5) mg/dL AST 49 H (12-35) U/L ALT 35 (4-50) U/L Alkaline Phosphatase 97 (40-150) U/L Albumin 4.5 (3.3-5.0) g/dL Urine 07/03/25 Range/Units 15:00 Urine Color Yellow (Yellow) Urine Appearance Clear (Clear) Urine pH 8.5 (5.0-8.5) Ur Specific [place] 1.015 (1.000-1.030) Urine Protein Negative (Negative) Urine Glucose (UA) Negative (Negative)
[2025-07-03] MEDS: SODIUM CHLORIDE 0.9 % (FLUSH) 10 ML SYRINGE 5 ML IVF ×6 (16:42→22:51)
[2025-07-03] MEDS: ONDANSETRON ODT 4 MG TAB PO (16:45)
--- NOTE | 2025-07-03 17:09 | CT_ITS ---
Patient: STEPHANIE CHE Facility:?[facility] Patient ID:?[id number] Site Patient ID:?[id number]. Site :?[id number] Study:?CT-Abdomen/Pelvis Angio MESENTRIC PROTOCOL-07/03/2025 8:05:13 PM Ordering Physician:Guilherme Darnell Final Report: INDICATION: Abdominal pain. TECHNIQUE: CT abdomen and pelvis acquired with 100 cc Omnipaque 350 IV contrast. COMPARISON: None. FINDINGS: Lower chest: Unremarkable. Liver: Hepatic cirrhosis. No focal hepatic lesion is identified. Gallbladder and bile ducts: Cholelithiasis. No evidence of biliary ductal dilatation. Pancreas: The pancreas is borderline edematous. There are peripancreatic in superior mesenteric inflammatory changes with interspersed subcentimeter lymph nodes throughout. Spleen: Splenomegaly measuring up to 18.8 cm in the AP dimension. Adrenal glands: Unremarkable. No nodules. Kidneys: Unremarkable. No suspicious masses, stones, or hydronephrosis. GI tract: Unremarkable. Normal in caliber. No sign of mass or inflammation. Normal appendix. Vasculature: Abdominal aorta is normal in caliber. Mesenteric arteries are patent. Advanced atherosclerosis. Lymph nodes: No lymphadenopathy. Peritoneum/Abdominal Wall: Varices are noted throughout the right paracentral anterior abdominal subcutaneous soft tissues. Recanalization of the paraumbilical vein is noted. Pelvis: Unremarkable. Bones: Unremarkable for age. IMPRESSION: Hepatic cirrhosis with sequelae of portal hypertension. The pancreas is borderline edematous. There are peripancreatic in superior mesenteric inflammatory changes with interspersed subcentimeter lymph nodes throughout. These findings are suggestive of mesenteric panniculitis, however correlation with amylase/lipase is recommended to exclude a coexisting acute pancreatitis. Please note that all CT scans at this facility use dose modulation, iterative reconstruction, and/or weight-based dosing when appropriate to reduce radiation dose to as low as reasonably achievable. Dictated by Norris Mendez MD @ 07/03/2025 8:26:13 PM (Electronic Signature)
[2025-07-03 17:38] LABS: D Dimer Quantitative* 0.63 ug/ml (0.00-0.50)
[2025-07-03 17:45] LABS: HCO3 VBG 22 mmol/L (21-28); Lactate* 1.6 mmol/L (0.5-1.9); PCO2 VBG 25 mmHG (40-50); PO2 VBG 61.2 mmHG (25-47); pH VBG 7.550 (7.32-7.43)
[2025-07-03 17:55] LABS: Procalcitonin* 0.04 ng/mL (<0.50)
[2025-07-03 18:50] LABS: INR 1.43 (0.91-1.10); Prothrombin Time 18.4 Seconds
[2025-07-03] MEDS: METOPROLOL TARTRATE 25 MG TABLET 12.5 MG PO (20:09)
[2025-07-04] MEDS: SODIUM CHLORIDE 0.9 % (FLUSH) 10 ML SYRINGE 5 ML IVF ×3 (00:29→07:57)
[2025-07-04 02:56] VITALS: BP 109/64; PULSE 74; RESP 20; TEMP 37.5; O2SAT 95
--- NOTE | 2025-07-04 04:55 | PC.NURSE ---
Addendum entered by Felecia Ibarra RN 07/04/25 06:19: Pt currently rating pain 3/10. states he is feeling much better, educated pt on transitioning from IV pain medications to oral pain medication. Original Note: [id number] Pt need for PRN pain medication decreased as night progressed, going longer and longer between doses. Pt able to sleep. initially pain 9/10, decreased to 4/10, tolerated IV with oral Dilaudid when able to administer. states he has some nausea but no vomiting during shift. tolerating PO intake, clears. denies chest pain, sob or headache. Abd pain located in RUQ. SBA with activity.
[2025-07-04 06:11] LABS: HCO3 VBG 24 mmol/L (21-28); Lactate* 1.1 mmol/L (0.5-1.9); PCO2 VBG 36 mmHG (40-50); PO2 VBG 68.6 mmHG (25-47); pH VBG 7.436 (7.32-7.43)
[2025-07-04 06:14] LABS: Hematocrit* 39.2 % (37.0-53.0); Hemoglobin* 13.5 gm/dL (13.5-17.5); Immature Granulocytes Abs Auto 0.05 K/uL (0.00-0.30); Immature Granulocytes Pct Auto 0.8 %; Lymphocytes Absolute Auto 0.50 K/uL (0.90-2.90); Mean Corpuscular HGB Conc 34 gm/dL (32-36); Mean Corpuscular Hemoglobin 30 pg (26-34); Mean Corpuscular Volume 86 fL (80-100); RDW Coefficient of Variation % 14.2 % (11.5-15.5); Red Blood Count* 4.56 m/uL (4.30-5.90); White Blood Count* 6.13 K/uL (4.50-11.00)
[2025-07-04 06:18] LABS: Slide Review Reflex No
[2025-07-04 06:32] LABS: Albumin* 3.6 g/dL (3.3-5.0); Chloride* 104 mmol/L (96-114)
[2025-07-04 06:33] LABS: Potassium* 3.5 mmol/L (3.6-5.1); Sodium* 136 mmol/L (135-149)
[2025-07-04 06:35] LABS: Blood Urea Nitrogen* 9 mg/dL (7-30); Creatinine* 0.7 mg/dL (0.5-1.5); Est. Creatinine Clearance* 121.67; Estimated Glomerular Filt Rate 108 ml/min
[2025-07-04 06:36] LABS: Alanine Aminotransferase* 23 U/L (4-50); Alkaline Phosphatase* 66 U/L (40-150); Anion Gap 9 mEq/L (7-15); Aspartate Amino Transferase* 36 U/L (12-35); Bilirubin Direct* 0.4 mg/dL (0.0-0.5); Bilirubin Total* 1.5 mg/dL (0.1-1.5); Calcium* 8.4 mg/dL (8.4-10.6); Carbon Dioxide* 23 mmol/L (20-32); Glucose* 121 mg/dL (60-115); Total Protein* 6.4 g/dL (6.0-8.3)
[2025-07-04 07:47] VITALS: BP 96/64; PULSE 64; RESP 18; TEMP 37.2; O2SAT 93
[2025-07-04] MEDS: PANTOPRAZOLE SODIUM 40 MG INJ IVP (07:55)
[2025-07-04 08:56] VITALS: PULSE 56
[2025-07-04] MEDS: MULTIVITAMIN/MINERALS 1 TABLET 1 TAB PO (10:01)
[2025-07-04] MEDS: FOLIC ACID 1 MG TABLET PO (10:01)
[2025-07-04] MEDS: THIAMINE 100 MG TABLET PO (10:01)
[2025-07-04] MEDS: METOPROLOL TARTRATE 25 MG TABLET 12.5 MG PO (10:01)
[2025-07-04] MEDS: LOPERAMIDE HCL 2 MG CAPSULE PO (10:02)
[2025-07-04 11:26] VITALS: BP 105/62; PULSE 60; RESP 16; TEMP 37.5; O2SAT 98
[2025-07-04] MEDS: IBUPROFEN 400 MG TABLET PO (14:16)
--- NOTE | 2025-07-04 14:53 | PM.DS1 ---
DS: Providers Provider Date Seen: 07/04/25 Date of admission: 07/03/25 17:29 Primary care physician: Edi Haddad MD Admitting Clinician: David Bernardo MD Attending Physician on discharge: David Bernardo MD Date of Discharge: 07/04/25 DS: Diagnosis Discharge Diagnosis (1) Mesenteric panniculitis: Status: Acute Problem details: Abdominal CTA: Hepatic cirrhosis with sequelae of portal hypertension. The pancreas is borderline edematous. There are peripancreatic in superior mesenteric inflammatory changes with interspersed subcentimeter lymph nodes throughout. These findings are suggestive of mesenteric panniculitis, however correlation with amylase/lipase is recommended to exclude a coexisting acute pancreatitis. -will update gen surgery and will likely not need EGD in the am but Dr. More is available if needed. -supportive care at this point. (2) Cirrhosis of liver: Status: Acute Problem details: Chronic stable. Evidence of portal hypertension with splenomegaly and esophageal varices. General surgery recommends referral to tertiary care if needing abdominal surgery such as cholecystectomy. (3) Alcohol use disorder in remission: Status: Acute Problem details: -daily naltrexone -sober date is 05/24/24 (4) Esophageal varices: Status: Acute Problem details: -metoprolol 12.5 BID -previous banding No current sign of bleeding. (5) Chronic alcoholic liver disease: Status: Acute Problem details: -followed by [facility] -primary care in [place] -recent weight loss noted 250->223 this year; no appetite -MELD 3.0 Score: 13 -sober date 05/24/24 (6) Encounter for pain management: Status: Acute Problem details: Patient is on chronic naltrexone for reducing cravings for alcohol use. This has been affective therapy for him. He has not gotten significant relief from normal doses of opioids on this hospitalization in June 2025 due to naltrexone therapy. Naltrexone was held and he was getting partial relief from opioids. He got partial relief from NSAIDs. Ketamine caused him to have unpleasant neuropsychiatric side effects. (7) Weight loss: Status: Acute Problem details: Patient reports significant unintentional weight loss over the past year. He reports primarily a poor appetite as the cause for this. Records suggest possibly related to cirrhosis of the liver. Concern for biliary disease also possibly a cause. Recommend outpatient follow-up with his liver specialist DS: Summary Hospital Course Hospital Course: 54 y/o WM with hx of alcoholic liver disease, obesity, recent cessation of chronic prednisone therapy (??) presents with the acute onset of abdominal pain. He ate normal yesterday; slept normal last night. 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 He was alone in a garage and felt the sudden onset of bowel cramping and had a normal large bowel movement. No melana, no javier blood, no diarrhea. He felt better only for a little bit then the abdominal pain came back and he felt nauseated. He went to a local gas station and got milk and a donut. he didn't get much of that in before he vomited and started dry-heaving. He went back to the garage and called his ; he didn't feel he could drive home. He call 911 and was brought to [facility]. In the ED, pain management was difficult. he rec'd morphine, ketorolac, zofran followed by dilaudid, valium, PPI. Dr. Cook then tried ketamine. That was not tolerated at all by the patient. We followed with more hydromorphone and zofran and toradol on the floor. ER COURSE: Pain management was the most important issue. He received 4 mg of morphine, 15 mg of Toradol, 3 doses of hydromorphone at 0.5 mg, 5 mg of Valium, 40 mg of a PPI and aspirin. He received ketamine 25 mg IV which he reports caused very unpleasant neuropsychiatric side effects The ER staff had a surgical curbside consult They discussed the case with GI in [place] He had both an ultrasound and a CT CTA of the abdomen was obtained and showed mesenteric panniculitis. Supportive care was initiated. 07/04/2025: Patient is much better today. His pain is better. Opioid Pain medications are beginning to work since it is now been more than 24 hours since his last dose of naltrexone. He is very anxious to go home but also concerned about returning of his pain. He is tolerating a diet without difficulty. Status at Discharge Overall status at discharge: patient is progressing back to baseline Time Spent with Patient Time attestation: Total time spent providing and/or coordinating discharge services: 65 minutes Exam Narrative: Exam Narrative: He is alert and in no distress. Speech is normal. He is pleasant and cooperative. Respirations are clear to auscultation. Cardiovascular: S1, S2, regular rate and rhythm. Abdomen: Bowel sounds active. Abdomen is soft with mild diffuse tenderness. Extremities without edema. Good peripheral pulses. Const: Vital Signs, click to edit/add: Vital Signs - 24 hr 07/03/25 15:05 07/03/25 16:10 07/03/25 17:56 Temperature 99.4 F Pulse Rate 60 55 L Pulse Rate [Right Pulse Oximeter] 58 L Respiratory Rate 20 Blood Pressure [Ri ght Arm] 150/103 H Pulse Oximetry 99 98 Oxygen Delivery Me thod Room Air Oxygen Flow Rate 07/03/25 19:00 07/03/25 19:00 07/03/25 23:00 Temperature 100.6 F H 97.5 F L Pulse Rate Pulse Rate [Right Pulse Oximeter] 58 L 55 L Respiratory Rate 18 20 Blood Pressure [Ri ght Arm] 135/75 98/61 Pulse Oximetry 88 96 90 Oxygen Delivery Me thod Room Air Room Air Nasal Cannula Oxygen Flow Rate 2 07/03/25 23:13 07/04/25 02:56 07/04/25 07:47 Temperature 99.5 F Pulse Rate 55 L Pulse Rate [Right Pulse Oximeter] 74 Respiratory Rate 20 18 Blood Pressure [Ri ght Arm] 109/64 Pulse Oximetry 95 93 Oxygen Delivery Me thod Room Air Room Air Oxygen Flow Rate 07/04/25 07:47 07/04/25 08:56 07/04/25 11:26 Temperature 99.0 F 99.5 F Pulse Rate 56 L Pulse Rate [Right Pulse Oximeter] 64 60 Respiratory Rate 18 16 Blood Pressure [Ri ght Arm] 96/64 105/62 Pulse Oximetry 93 98 Oxygen Delivery Me thod Room Air Room Air Oxygen Flow Rate Documenting provider has reviewed patient's vital signs: yes DS: Data Data Completed and Pending Labs on day of discharge: Labs from last 24 hours 07/04/25 07/03/25 07/03/25 05:47 18:11 17:40 WBC 6.13 RBC 4.56 Hgb 13.5 Hct 39.2 MCV 86 MCH 30 MCHC 34 RDW Coeff of Jayda 14.2 Plt Count 116 L Neut % (Auto) 85.0 H Lymph % (Auto) 8.2 L [place] % (Auto) 6.0 Eos % (Auto) 0.0 Baso % (Auto) 0.0 Neut # (Auto) 5.20 Lymph # (Auto) 0.50 L [place] # (Auto) 0.40 Eos # (Auto) 0.00 Baso # (Auto) 0.00 Abs Immat Gran (auto) 0.05 Imm/Tot Granulo (auto) 0.8 INR 1.43 H D-Dimer Quant (PE/DVT) VBG pH 7.436 H 7.550 H VBG pCO2 36 L 25 L VBG pO2 68.6 H 61.2 H VBG HCO3 24 22 Sodium 136 Potassium 3.5 L Chloride 104 Carbon Dioxide 23 Anion Gap 9 BUN 9 Creatinine 0.7 Estimated Creat Clear 121.67 Estimated GFR 108 Glucose 121 H Lactate 1.1 1.6 Calcium 8.4 Phosphorus 3.2 Total Bilirubin 1.5 Direct Bilirubin 0.4 AST 36 H ALT 23 Alkaline Phosphatase 66 Troponin I 0.01 C-Reactive Protein < 0.5 L Total Protein 6.4 Albumin 3.6 Amylase Lipase 45 Procalcitonin Urine Color Urine Appearance Urine pH Ur Specific Brandon Urine Protein Urine Glucose (UA) Urine Ketones Urine Blood Urine Nitrite Urine Bilirubin Urine Urobilinogen Ur Leukocyte Esterase Urine RBC Urine WBC Ur Squamous Epith Cells Urine Bacteria Lab Acknowledgement Test Added 07/03/25 07/03/25 07/03/25 16:54 15:00 10:04 WBC RBC Hgb Hct MCV MCH MCHC RDW Coeff of Jayda Plt Count Neut % (Auto) Lymph % (Auto) [place] % (Auto) Eos % (Auto) Baso % (Auto) Neut # (Auto) Lymph # (Auto) [place] # (Auto) Eos # (Auto) Baso # (Auto) Abs Immat Gran (auto) Imm/Tot Granulo (auto) INR D-Dimer Quant (PE/DVT) 0.63 H VBG pH VBG pCO2 VBG pO2 VBG HCO3 Sodium Potassium Chloride Carbon Dioxide Anion Gap BUN Creatinine Estimated Creat Clear Estimated GFR Glucose Lactate Calcium Phosphorus Total Bilirubin Direct Bilirubin AST ALT Alkaline Phosphatase Troponin I C-Reactive Protein Total Protein Albumin Amylase 63 Lipase Procalcitonin 0.04 Urine Color Yellow Urine Appearance Clear Urine pH 8.5 Ur Specific Brandon 1.015 Urine Protein Negative Urine Glucose (UA) Negative Urine Ketones 2+ A Urine Blood Trace-intact A Urine Nitrite Negative Urine Bilirubin Negative Urine Urobilinogen 0.2 Ur Leukocyte Esterase Negative Urine RBC 0-2 Urine WBC 0-2 Ur Squamous Epith Cells None Urine Bacteria None Lab Acknowledgement Test Added Imaging CT scan - abdomen: Radiologist's impression: INDICATION: Abdominal pain. TECHNIQUE: CT abdomen and pelvis acquired with 100 cc Omnipaque 350 IV contrast. COMPARISON: None. FINDINGS: Lower chest: Unremarkable. Liver: Hepatic cirrhosis. No focal hepatic lesion is identified. Gallbladder and bile ducts: Cholelithiasis. No evidence of biliary ductal dilatation. Pancreas: The pancreas is borderline edematous. There are peripancreatic in superior mesenteric inflammatory changes with interspersed subcentimeter lymph nodes throughout. Spleen: Splenomegaly measuring up to 18.8 cm in the AP dimension. Adrenal glands: Unremarkable. No nodules. Kidneys: Unremarkable. No suspicious masses, stones, or hydronephrosis. GI tract: Unremarkable. Normal in caliber. No sign of mass or inflammation. Normal appendix. Vasculature: Abdominal aorta is normal in caliber. Mesenteric arteries are patent. Advanced atherosclerosis. Lymph nodes: No lymphadenopathy. Peritoneum/Abdominal Wall: Varices are noted throughout the right paracentral anterior abdominal subcutaneous soft tissues. Recanalization of the paraumbilical vein is noted. Pelvis: Unremarkable. Bones: Unremarkable for age. IMPRESSION: Hepatic cirrhosis with sequelae of portal hypertension. The pancreas is borderline edematous. There are peripancreatic in superior mesenteric inflammatory changes with interspersed subcentimeter lymph nodes throughout. These findings are suggestive of mesenteric panniculitis, however correlation with amylase/lipase is recommended to exclude a coexisting acute pancreatitis. US - abdomen: Radiologist's impression: INDICATION: Abdominal pain, nausea, gallstone TECHNIQUE: Ultrasound abdomen limited. Sonographic images of the right upper quadrant were obtained using moreno-scale and color Doppler images. COMPARISON: Same day CT abdomen and pelvis with contrast. FINDINGS: Liver: Heterogeneous liver parenchyma with coarse echotexture and nodular contour. Gallbladder: Multiple nonmobile gallstones are present. Gallbladder wall thickness is at the upper limits of normal measuring 3 millimeters. No pericholecystic fluid. Negative sonographic Yost`s sign. Common bile duct: 2 mm. Pancreas: Not well visualized. Right kidney: Normal in size. Normal echotexture and cortex. No suspicious masses, stones, or hydronephrosis. Proximal abdominal aorta: Normal in caliber. IVC: Patent. Main portal vein: Patent. Ascites: None visualized. IMPRESSION: 1. Cholelithiasis without sonographic findings to suggest acute cholecystitis. 2. Cirrhosis. Discharge Plan Discharge Disposition: Home, Self-Care Date of Admission: 07/03/25 17:29 Attending Provider on Discharge: David Bernardo Primary Care Provider: Edi Haddad Condition: Improved Anticipated Discharge Date/Time: 07/04/25 18:00 Discharge Medications: New ibuprofen 200 mg tablet 400 mg PO Q6H PRNQty: 30 0RF hydromorphone 2 mg Tablet 2 mg PO Q4H PRNQty: 20 0RF Continued epinephrine 0.3 mg/0.3 mL auto-injector 0.3 mg IM DIRECTED PRN folic acid 1 mg tablet 1 mg PO DAILY metoprolol tartrate 25 mg tablet 12.5 mg PO BID thiamine HCl (vitamin B1) 100 mg tablet 100 mg PO DAILY diltiazem HCl [DILT-XR] 120 mg capsule,ext.rel 24h degradable 120 mg PO DAILY tadalafil 5 mg tablet 5 mg PO DAILY pyridoxine (vitamin B6) [Vitamin B-6] PO DAILY cyanocobalamin (vitamin B-12) PO DAILY multivitamin [Daily Multi-Vitamin] Tablet 1 tab PO DAILY cholecalciferol (vitamin D3) 5,000 unit PO DAILY ferrous sulfate [iron] 325 mg (65 mg iron) tablet 325 mg PO Q48H loperamide 2 mg capsule 2 mg PO QAM ascorbic acid (vitamin C) [C-500] 500 mg tablet 500 mg PO DAILY potassium gluconate 595 mg (99 mg) tablet 595 mg PO DAILY magnesium oxide 400 mg magnesium tablet 400 mg PO DAILY gabapentin 300 mg capsule 300 mg PO 3XD rosuvastatin 5 mg tablet 5 mg PO DAILY Held naltrexone 50 mg tablet 50 mg PO DAILY Hold Instructions: Resume on 07/07/25. Hold naltrexone while taking hydromorphone. You may resume naltrexone sooner if no longer needing hydromorphone Discontinued prednisone 5 mg tablet 5 mg PO DAILY Discharge Orders: Discharge Order (Routine); Ordered 07/04/25 Ordered By: David Bernardo Additional Instructions: Your diagnosis of mesenteric panniculitis should gradually improve. I have prescribed hydromorphone, an opioid pain medication, and ibuprofen for pain control in the next few days. Stop taking naltrexone until you no longer need hydromorphone. The naltrexone blocks the effect of hydromorphone. Ibuprofen is not generally recommended for people with cirrhosis but we are using it in a lower dose and for shorter time in your case to help with pain management. Stop taking this as soon as you can. The naltrexone has been a good medicine for you and you should get back on it as soon as you can. In addition to your current problem I am concerned about your report of ongoing unintentional weight loss. This could be related to your cirrhosis of your liver or could be related to gallbladder problems. I recommend you see your liver specialist or a general surgeon who works at a larger hospital for further evaluation. Discharge Diet: Regular Follow Up Appointments: Edi Haddad MD [Primary Care Provider, Family Practice] Referral Note: Follow-up in 1-2 weeks Forms: [employer] Info Instructions
[2025-07-04 15:00] VITALS: BP 99/53; PULSE 55; RESP 16; TEMP 36.8; O2SAT 94
--- NOTE | 2025-07-04 18:00 | PC.NURSE ---
Pt a/o x4,up ad jhon, pain reported 3-5/10 throughout shift, prn meds given. pt given discharge education both verbal and written, all questions answered, at bedside. IV removed with Cath tip intact. Pt left facility @ 1740 accompanied by via wheelchair.
== END 2025-07-04 17:40 | disposition home or self-care (01) | DRG 394 ==
LOC: ED 14:29 → MEDSURG 15:23
PROVIDERS: Family Medicine; Admitting Provider Family Medicine; Emergency Provider Emergency Medicine; PCP Family Medicine; Visit Provider Family Medicine
DX: K65.4 Sclerosing mesenteritis (principal); I85.10 Secondary esophageal varices without bleeding; K76.6 Portal hypertension; K70.30 Alcoholic cirrhosis of liver without ascites; F10.21 Alcohol dependence, in remission; I10 Essential (primary) hypertension; E66.9 Obesity, unspecified; R63.4 Abnormal weight loss; Z79.891 Long term (current) use of opiate analgesic; K80.20 Calculus of gallbladder without cholecystitis without obstruction; N20.0 Calculus of kidney; Z87.891 Personal history of nicotine dependence; Z68.31 Body mass index [BMI] 31.0-31.9, adult
CPT/HCPCS: 36415; 74174; 74177; 76705; 80048; 80069; 80076; 81001; 82077; 82150; 82803; 83605; 83690; 83735; 84145; 84484; 85025; 85379; 85610; 86140; 93005; 94761; 99285; A9153; A9270; J1171; J1885; J2270; J2405; J2470; J3360; J3490; J7030; Q9967